=== PATIENT | female | born 1980 | race Two or more races ===

== ENCOUNTER 2024-09-30 19:37 | Emergency (ER) | payer MEDICAID, SELFPAY ==
[2024-09-30 19:39] VITALS: BMI 37.2
[2024-09-30 20:04] VITALS: BP 130/89; PULSE 91; RESP 16; TEMP 37.2; O2SAT 100
--- NOTE | 2024-09-30 20:20 | XR_ITS ---
Examination: CT brain head without contrast. 2-D sagittal coronal reconstructions Date and time of exam:September 30, 20232025 hrs. Indications: Severe headaches with nausea vomiting beginning 4 months ago CTDI: vol (mGy):49.9 DLP: (mGycm):989 Technique: Multiple CT axial sections of the brain have been obtained, 5 mm slice thickness. Contrast has not been administered. 2-D sagittal, coronal reconstructions have been obtained Low dose protocols were performed. One or more of the following dose reduction techniques were used; automated exposure control, adjustment of the mA and/or KV according to patient size, use of iterative reconstruction technique. Findings: No significant ventricular enlargement. Intra-axial or extra-axial hemorrhage density is not seen. No mass effect or midline shift Basal cisterns are not remarkable. Fourth ventricle is midline. Cranial vault intact. Impression: Negative for acute hemorrhage, mass effect or midline shift If new onset headaches persist, consider brain MRI follow-up
--- NOTE | 2024-09-30 20:21 | EDRME_ITS ---
Rapid Medical Screening Exam [facility] Arrival date/time: 09/30/24 19:37 44F with history of gastric bypass surgery presents to ED with several months of persistent FAN everyday, as well as ab pain and N/V. PCP has done blood work, but no imaging studies. Chief Complaint: Headache Vital signs: Vital Signs Temperature 98.9 F 09/30/24 20:04 Pulse Rate 91 09/30/24 20:04 Respiratory Rate 16 09/30/24 20:04 Blood Pressure 130/89 H 09/30/24 20:04 Pulse Oximetry (%) 100 09/30/24 20:04 Oxygen Delivery Method Room Air 09/30/24 20:04
[2024-09-30 20:58] LABS: Basophils # (Auto) 0.1 Thou/mm3 (0.0-0.2); Basophils % (Auto) 1 % (0-2.5); Eosinophils # (Auto) 0.9 Thou/mm3 (0.0-0.5); Eosinophils % (Auto) 8 % (0-10); Hematocrit 37.8 % (36.0-46.0); Immature Granulocytes % (Auto) 0 % (0-0); Immature Granulocytes Auto 0.05 Thou/mm3 (0.00-0.00); Lymphocytes # (Auto) 2.8 Thou/mm3 (1.0-4.8); Lymphocytes % (Auto) 24 % (10-50); Mean Corpuscular HGB Conc 31.7 g/dl (31.0-37.0); Mean Corpuscular Hemoglobin 24.3 pg (25.0-35.0); Mean Corpuscular Volume 77 fL (80-100); Monocytes # (Auto) 0.9 Thou/mm3 (0.0-0.8); Monocytes % (Auto) 8 % (0-12); Neutrophils % (Auto) 59 % (37-80); Nucleated Red Blood Cell % 0 /100 WBC (0); Platelet Count 444 Thou/mm3 (140-440); RDW Standard Deviation 41.1 fL (36.4-46.3); Red Blood Count 4.94 Miln/mm3 (4.00-5.20); White Blood Count 11.8 Thou/mm3 (3.6-11.0)
[2024-09-30 21:33] LABS: Collection Type, Urine Clean Catch
[2024-09-30 22:03] LABS: HCG Qualitative,Urine Negative
[2024-09-30 22:10] LABS: Bacteria,Urine 4+; Bilirubin,Urine Negative (Negative); Blood,Urine 1+ (Negative); Color,Urine Yellow (Lt Yel-Yel); Glucose, Urine 2+ (Negative); Ketones,Urine Negative (Negative); Leukocyte Esterase,Urine Positive (Negative); Nitrite,Urine Positive (Negative); Protein,Urine Trace (Neg - Trace); RBC,Urine 6 /hpf (0-3); Specific Gravity,Urine 1.024 (1.001-1.035); Squamous Epithelial Cell,Urine 2 /hpf (0-5); Urobilinogen,Urine Negative mg/dL (0.0-1.0); WBC,Urine 3 /hpf (0-5)
[2024-09-30 22:12] LABS: Clarity,Urine Hazy (Clear/Hazy)
[2024-09-30 23:03] LABS: Amphetamine/Methamp Scrn,U Negative (Negative); Barbiturate Screen,Urine Negative (Negative); Benzodiazepines Screen,Urine Negative (Negative); Benzoylecgonine Screen, Ur Negative (Negative); Fentanyl Screen,Urine Negative (Negative); Opiate Screen,Urine Negative (Negative); THC Screen,Urine Negative (Negative)
[2024-09-30 23:24] LABS: Strep A Rapid Negative (Negative)
[2024-09-30 23:31] LABS: Alanine Aminotransferase 68 U/L (10-49); Albumin, Serum 4.7 gm/dL (3.5-5.0); Albumin/Globulin Ratio 1.7 (1.2-2.2); Alkaline Phosphatase 179 U/L (46-116); Anion Gap 9 (7-16); Aspartate Amino Transferase 50 U/L (0-34); BUN/Creatinine Ratio 9 Ratio (12-20); Bilirubin,Total 0.7 mg/dL (0.3-1.2); Blood Urea Nitrogen 7 mg/dL (9-23); Calcium 9.4 mg/dL (8.3-10.6); Calcium (Corrected) 9.4 mg/dL (8.5-10.1); Carbon Dioxide 24.5 mMol/L (20.0-31.0); Chloride 106 mMol/L (98-107); Creatinine (Component) 0.8 mg/dL (0.6-1.3); Estimated Creatinine Clearance 93.2 mL/min (>60); Globulin 2.8 gm/dL (2.3-3.5); Glucose 100 mg/dL (74-106); Lipase 45 U/L (12-53); Osmolality,Calculated 275 (275-295); Potassium 4.1 mMol/L (3.4-5.1); Sodium 139 mMol/L (136-145); Total Protein 7.5 gm/dL (5.7-8.2); eGFR > 60 See Note
[2024-10-01] VITALS (7 sets, daily range): BP systolic 90–128; BP diastolic 55–86; PULSE 68–91; RESP 16–18; TEMP 36.8–37.2; O2SAT 99–100
--- NOTE | 2024-10-01 00:10 | PC.NURSE ---
PATIENT CAME TO CONTINUOUS [employer]ER OPERATOR TO ASK HOW MUCH LONG FOR RESULTS. I APOLOGIZED TO PATIENT AND NOTIFIED PROVIDER AND CHARGE NURSE.
--- NOTE | 2024-10-01 07:12 | PC.NURSE ---
Patient lying in gurney quietly, patient chart up for review. patient to er with c/o generlized head pain states pain has decreased to 4/10 at this time, call light within reach.
--- NOTE | 2024-10-01 07:28 | PD.EDHA ---
ED Headache RME/HPI General Chief Complaint: Headache Stated Complaint: HEADACHE, VOMITING, ABD/BACK PAIN [id number] Time Seen by Provider: 10/01/24 08:39 Arrival date/time: 09/30/24 19:37 RME / HPI RME / HPI Narrative: 09/30/24 19:37 44F with history of gastric bypass surgery presents to ED with several months of persistent FAN everyday, as well as ab pain and N/V. PCP has done blood work, but no imaging studies. DR. ELDER MAIN ED EVALUATION 44 year old female with history of gastric sleeve surgery and previous pregnancies presents to the ED for complaint of headache, back pain, nausea, vomiting, and diarrhea today. Patient reports intermittent headaches over the course of 5 months. However, noticed intensity of headache worsened 2 days ago after developing back pain, nausea vomiting, and diarrhea. Denies any vision changes or loss of function/strength. Denies fever, chills, sweating. Denies chest pain, cough, shortness of breath. Denies dysuria, urinary frequency and urgency. Related Data Home Medications ?Medication ?Instructions ?Recorded ?Confirmed vit no.95-ferrous 11/11/19 fumarate 28 mg-folic acid 800 mcg tablet () Previous Rx's ?Medication ?Instructions ?Recorded diphenhydramine HCl 50 mg capsule 50 mg PO QID PRN allergic reaction 11/11/19 #20 caps cyclobenzaprine 5 mg tablet 5 mg PO TID PRN muscle spasm #20 04/16/21 tabs naproxen 500 mg tablet 500 mg PO BID PRN pain #30 tabs 04/16/21 hydrocodone 5 mg-acetaminophen 325 1 tab PO TID #20 tabs 01/18/23 mg tablet cephalexin 500 mg capsule 500 mg PO TID #15 caps 10/01/24 Allergies Allergy/AdvReac Type Severity Reaction Status Date / Time tramadol Allergy Unknown HIVES, Verified 01/17/23 22:27 NAUSEA Review of Systems Review of Systems Narrative Review of Systems: GEN: No fever, no chills, no weight loss EYES: No discharge, no visual changes, no pain HEENT: No ear pain, no congestion, no sore throat PULM: No shortness of breath, no cough, no congestion CV: No chest pain, no dyspnea on exertion, no palpitations GI: +nausea, + vomiting, + diarrhea, no pain, no constipation : No frequency, no urgency, no dysuria MUSC/SKEL: No joint pain, +back pain SKIN: No rash PSYCH: No hallucinations, no depression HEME/LYMPH: No easy bleeding or bruising tendencies NEURO: No weakness, +headache Past Medical History Past Medical History RESPIRATORY: Positive Asthma and Bronchitis Surgical History SURGICAL: Positive Gastric Bypass Surgery Social History SMOKING STATUS: Current some day smoker ED Exam Narrative Physical exam: GENERAL APPEARANCE: alert and oriented x 4, well-developed, well-nourished, no acute distress HEENT: Normocephalic, atraumatic; pupils equal, round, reactive to light; EOMI; mucous membranes pink, moist; tonsils are enlarged and red NECK: Supple LUNGS: CTABL; no wheezes, no rales, no rhonchi HEART: Regular rate, regular rhythm; normal S1, S2; no murmurs ABDOMEN: non distended; normal BS; soft, no tenderness, no guarding, no rebound; no masses, no organomegaly, no hernia BACK: no CVA tenderness EXTREMITIES: atraumatic; no edema NEUROLOGIC: awake; alert and oriented x4; cranial nerves II-XII grossly intact; no focal sensory or motor deficits PSYCHIATRIC: appropriate mood and affect SKIN: warm, dry, normal color; no rashes Course Quality Measures none Orders Category Date Time Status CT Screening NOW Care 10/01/24 07:[address] abdomen pelvis w con Stat Exams 10/01/24 07:[address] head/brain wo con Stat Exams 09/30/24 20:[address] soft tissue neck w con Stat Exams 10/01/24 07:38 Completed CBC Stat Lab 09/30/24 20:34 Completed CMP [Comprehensive Metabolic Panel] Stat Lab 09/30/24 20:34 Completed Drug Screen,Urine Stat Lab 09/30/24 21:00 Completed HCG Qualitative,Urine Stat Lab 09/30/24 21:00 Completed Lipase Stat Lab 09/30/24 20:34 Completed Strep A Rapid Stat Lab 09/30/24 20:37 Completed Urinalysis Stat Lab 09/30/24 21:00 Completed Ketorolac Inj [Toradol Inj] Med 10/01/24 07:40 Discontinued 15 mg IVP X1 ONE Sodium Chloride 0.9% 1000 ml [Ns] 1,000 ml Med 10/01/24 07:38 Discontinued IV 999 mls/hr cefTRIAXone/D5w 1gm IV premix [Rocephin/D5w 1gm IV Med 10/01/24 08:45 Discontinued premix] 50 ml IV X1 Reevaluation(s) Reevaluation #1: Patient remains clinically stable throughout the emergency department visit. We reviewed all the results, analysis, and treatment plans. Patient is amenable to discharge. Strict return precautions were outlined. Patient was discharged in stable condition. Time: 12:00 Vital Signs Vital signs: Vital Signs Temperature 98.9 F 09/30/24 20:04 Pulse Rate 91 09/30/24 20:04 Respiratory Rate 16 09/30/24 20:04 Blood Pressure 130/89 H 09/30/24 20:04 Pulse Oximetry (%) 100 09/30/24 20:04 Oxygen Delivery Method Room Air 09/30/24 20: Pulse ox is 100% on room air which is adequate. Headache Patient data External records reviewed:: [facility] previous records (I reviewed ED visit on 01/18/2023) Clinical information provided by:: patient Social determinants that could affect healthcare access:: none Patient has the following chronic illnesses:: gastric sleeve surgery How is presenting disease/condition affected by chronic disease/condition?: exacerbated by Evaluation data The following diagnostics were reviewed and interpreted by me:: lab results and radiology exam(s) Lab and/or radiology exams considered but not ordered:: None Interpretation Summary: Head CT: No acute findings Soft tissue neck CT: bilateral soft tissue tonsillar hypertrophy Ab/pelvis CT: Hepatomegaly, no kidney stones, normal appendix, no bowel obstruction, mild cystitis pattern Medications / Prescriptions Medications or Prescriptions considered but not ordered:: none Medication administrations:: Medication Administration History Discontinued Medications Sodium Chloride (Ns) 1,000 mls @ 999 mls/hr IV .Q1H1M ONE Stop: 10/01/24 08:38 Last Infusion: 10/01/24 09:20 Dose: Infused Documented By: Admin: 10/01/24 08:18 Dose: 999 mls/hr Documented By: ELVIA Ceftriaxone Sodium/Dextrose (Rocephin/D5w 1gm Iv Premix) 50 mls @ 100 mls/hr IV X1 ONE Stop: 10/01/24 09:14 Last Infusion: 10/01/24 09:20 Dose: Infused Documented By: Admin: 10/01/24 08:48 Dose: 100 mls/hr Documented By: ELVIA Ketorolac Tromethamine (Ketorolac Inj 30 Mg/Ml Vial) 15 mg IVP X1 ONE Stop: 10/01/24 07:41 Last Admin: 10/01/24 08:18 Dose: 15 mg Documented By: ELVIA See above Consultations Consultation(s) initiated? (list below): No Diagnosis Differential diagnosis headache: migraine, tension headache, headache, sinusitis and other (dehydration, UTI) Most likely diagnosis given after review of the tests above:: UTI Enlarged tonsils Admission Indicated Admission indicated?: not indicated Admission Request Was there a request for admission?: No Disposition Plan Disposition Plan: Discharge Discharge Attestation Discharge Attestation: The patient and all family members were given an opportunity to ask questions and understood the discharge instructions. Discharge instructions specifically effects, indications for sooner follow up or return to the emergency department, and the expected course of current diagnosis. Patient condition: Stable Discharge Plan Plan Patient Disposition: HOME (Self Care) Prescriptions/Referrals Prescriptions/Med Rec: New cephalexin 500 mg capsule 500 mg PO TID Qty: 15 0RF No Action cyclobenzaprine 5 mg tablet 5 mg PO TID PRN (Reason: muscle spasm) Qty: 20 0RF naproxen 500 mg tablet 500 mg PO BID PRN (Reason: pain) Qty: 30 0RF PNV cmb#95-ferrous fumarate-FA [] 28 mg iron- 800 mcg Tablet diphenhydramine HCl 50 mg capsule 50 mg PO QID PRN (Reason: allergic reaction) Qty: 20 0RF Rx Instructions: Take 1 tablet 4 times a day on the first day, and then 1 tablet 4 times a day if necessary for itching or allergic reaction hydrocodone-acetaminophen 5-325 mg tablet 1 tab PO TID MDD 3 Qty: 20 0RF Referrals: Bony Tavarez MD [Primary Care Provider] - In 1 week Problem List Clinical Impression: UTI (urinary tract infection), Enlarged tonsils Patient/Caregiver Discharge Instructions Education Materials: ED CYSTITIS Female Adult Print Language: Djiboutian Stand Alone Forms: Danna Award Info., Patient Portal Info Letter
--- NOTE | 2024-10-01 07:38 | XR_ITS ---
Examination: CT soft tissue neck, with intravenous contrast. 2-D coronal reconstructions. 2-D sagittal reconstructions. Date and time of exam :October 01, 2024 0920 hours INDICATIONS: Onset sore throat today. CTDI: vol (mGy):11.7 DLP: (mGycm):295 Technique: 1.25 mm axial sections of the neck of the obtained. Coronal and sagittal reconstructions have been obtained. Intravenous contrast administered 60 cc Isovue-370. Low dose protocols were performed. One or more of the following dose reduction techniques were used; automated exposure control, adjustment of the mA and/or KV according to patient size, use of iterative reconstruction technique. Findings: Moderate bilateral soft tissue tonsillar hypertrophy No tonsillar abscess Symmetrical submandibular glands No pathologic cervical lymphadenopathy The larynx appears normal Symmetrical thyroid lobes The epiglottis is not thickened No prevertebral soft tissue prominence Satisfactory alignment cervical vertebral bodies on the lateral view IMPRESSION: Moderate bilateral soft tissue tonsillar hypertrophy No tonsillar abscess depicted
--- NOTE | 2024-10-01 07:39 | XR_ITS ---
Examination: CT abdomen with intravenous contrast CT pelvis with intravenous contrast 2-D coronal reconstructions 2-D sagittal reconstructions Date and time of exam:October 01, 2024 0920 hours INDICATIONS: Abdominal pain nausea vomiting beginning 4 months ago. CTDI: vol (mGy) 26.5 DLP: (mGycm) 1647 Technique: Multiple axial sections of the abdomen and pelvis have been obtained. 64 slice high-resolution scanner used. 3 mm axial sections have been obtained, post intravenous injection 60 cc Isovue-370 2-D sagittal, coronal reconstructions obtained. Low dose protocols were performed. One or more of the following dose reduction techniques were used; automated exposure control, adjustment of the mA and/or KV according to patient size, use of iterative reconstruction technique. Findings: Fatty infiltration throughout the liver Absent gallbladder Small splenic liver cysts No pancreatic mass Normal adrenal glands No renal or ureteral calculi, no hydronephrosis Aorta normal size 20 mm fat-containing umbilical hernia Normal appendix No bowel obstruction No diverticulitis Anteverted uterus, no adnexal mass Minimal wall thickening urinary bladder Osseous structures intact IMPRESSION: Hepatomegaly 18 cm fatty liver No renal or ureteral calculi, no hydronephrosis 20 mm fat-containing umbilical hernia Normal appendix No bowel obstruction diverticulitis or free air Mild cystitis pattern
[2024-10-01] MEDS: KETOROLAC INJ 30 MG/ML VIAL 15 MG IVP (08:18)
[2024-10-01] MEDS: SODIUM CHLORIDE 0.9% 1000 ML 1,000 ML 999 ML IV (08:18)
--- NOTE | 2024-10-01 08:27 | PC.NURSE ---
Called pharmacy for rocephin, not in our pyxis
[2024-10-01] MEDS: cefTRIAXone/D5w 1gm IV premix 50 ML IV (08:48)
--- NOTE | 2024-10-01 11:07 | PC.NURSE ---
Patient lying in gurney quietly on her right side, patient states her head pain is 4/10 and is tolerable at this time, all results up for review, call light within reach.
== END 2024-10-01 12:56 | disposition home or self-care (01) ==
PROVIDERS: Physician Assistant; Emergency Provider Emergency Medicine; PCP Family Medicine
DX: N39.0 Urinary tract infection, site not specified (principal); J35.1 Hypertrophy of tonsils; R51.9 Headache, unspecified; R11.2 Nausea with vomiting, unspecified; R10.9 Unspecified abdominal pain; F17.210 Nicotine dependence, cigarettes, uncomplicated
CPT/HCPCS: 36415; 70450; 70491; 74177; 80053; 80307; 81001; 81025; 83690; 85025; 87651; 96365; 99285; A4649; J0696; J1885; J7030; Q9967

== ENCOUNTER 2025-06-22 12:15 | Emergency (ER) | payer MEDICAID, SELFPAY ==
[2025-06-22 12:25] VITALS: BP 133/77; PULSE 85; RESP 18; TEMP 36.9; O2SAT 98
--- NOTE | 2025-06-22 12:32 | XR_ITS ---
Examination: Left elbow 3 views Technique: Elbow AP, oblique, lateral 3 views Exam date and time: June 22, 2025 1259 hours INDICATIONS: Injury to the elbow today, elbow pain. FINDINGS: No fracture or dislocation. No foreign body IMPRESSION: No fracture or dislocation.
--- NOTE | 2025-06-22 14:12 | PD.EDUPEX ---
Upper Extremity Injury RME/HPI General Chief Complaint: Extremity Injury, Upper Stated Complaint: HIT L) ELBOW REALLY HARD ON DRESSER Time Seen by Provider: 06/22/25 12:24 Source: patient Arrival date/time: 06/22/25 12:15 45-year-old female with no known medical history presents to the emergency room with a chief complaint of tenderness and pain to her left elbow after hitting her hand hard on a dresser yesterday afternoon Mode of arrival: ambulatory Limitations: no limitations Related Data Home Medications ?Medication ?Instructions ?Recorded ?Confirmed vit no.95-ferrous 11/11/19 fumarate 28 mg-folic acid 800 mcg tablet () Previous Rx's ?Medication ?Instructions ?Recorded diphenhydramine HCl 50 mg capsule 50 mg PO QID PRN allergic reaction 11/11/19 #20 caps cyclobenzaprine 5 mg tablet 5 mg PO TID PRN muscle spasm #20 04/16/21 tabs naproxen 500 mg tablet 500 mg PO BID PRN pain #30 tabs 04/16/21 hydrocodone 5 mg-acetaminophen 325 1 tab PO TID #20 tabs 01/18/23 mg tablet cephalexin 500 mg capsule 500 mg PO TID #15 caps 10/01/24 Allergies Allergy/AdvReac Type Severity Reaction Status Date / Time tramadol Allergy Unknown HIVES, Verified 06/22/25 12:18 NAUSEA Review of Systems Review of Systems Systems Reviewed: All systems reviewed, normal except as documented Constitutional Constitutional: Reports system reviewed and no additional complaints, except as documented, Denies fatigue, Denies fever(s), Denies headache(s) and Denies weakness Eyes Eyes: Reports system reviewed and no additional complaints, except as documented, Denies blurry vision and Denies change in vision ENT Ears, Nose, Mouth, and Throat: Reports system reviewed and no additional complaints, except as documented, Denies otalgia, Denies headache(s), Denies nasal congestion, Denies throat swelling and Denies vertigo Cardiovascular Cardiovascular: Reports system reviewed and no additional complaints, except as documented, Denies chest pain, Denies dyspnea and Denies dyspnea on exertion Respiratory Respiratory: Reports system reviewed and no additional complaints, except as documented, Denies chest congestion, Denies cough, Denies dyspnea, Denies dyspnea on exertion and Denies wheezing Gastrointestinal Gastrointestinal: Reports system reviewed and no additional complaints, except as documented, Denies abdominal pain, Denies cramping, Denies nausea and Denies vomiting Genitourinary Genitourinary: Reports system reviewed and no additional complaints, except as documented Musculoskeletal Musculoskeletal: Reports system reviewed and no additional complaints, except as documented, Reports arthralgias, Denies back pain, Reports joint swelling and Denies limited range of motion Integumentary/Breasts Skin/Breast: Reports system reviewed and no additional complaints, except as documented and Denies wounds Neurologic Neurologic: Reports system reviewed and no additional complaints, except as documented, Denies confusion, Denies headache(s), Denies lack of coordination, Denies vertigo and Denies weakness Psychiatric Psychiatric: Reports system reviewed and no additional complaints, except as documented, Denies anxiety, Denies confusion, Denies depression, Denies paranoia, Denies suicidal ideation and Denies tactile hallucinations Endocrine Endocrine: Reports system reviewed and no additional complaints, except as documented and Denies fatigue Hematologic/Lymphatic Hematologic/Lymphatic: Reports system reviewed and no additional complaints, except as documented and Denies lymphadenopathy Allergic/Immunologic Allergic/Immunologic: Reports system reviewed and no additional complaints, except as documented, Denies throat swelling, Denies urticaria and Denies wheezing Past Medical History Past Medical History CARDIAC: Negative Cardiac Disorders or Congestive Heart Failure RESPIRATORY: Positive Asthma and Bronchitis; Negative Chronic Obstructive Pulmonary Disease (COPD) GENITOURINARY: Negative Renal Disease ENDOCRINE: Negative Diabetes Mellitus Type 1 or Diabetes Mellitus Type 2 HEMATOLOGIC: Negative Sickle Cell Disease Surgical History SURGICAL: Positive Gastric Bypass Surgery Social History SMOKING STATUS: Former smoker ED Exam General Limitations: Present no limitations General appearance: Present alert and in no apparent distress Head Head exam: Present atraumatic Eye Eye exam: Present normal appearance, PERRL and EOMI ENT ENT exam: Present normal exam, normal oropharynx and mucous membranes moist Neck Neck exam: Present normal inspection, full ROM and trachea midline Chest Chest inspection: Present normal inspection and symmetric chest wall rise Respiratory Respiratory exam: Present normal lung sounds bilaterally Cardiovascular Cardiovascular exam: Present regular rate, normal rhythm and normal heart sounds Abdominal Exam Abdominal exam: Present soft and normal bowel sounds Extremities Exam Extremities exam: Present normal inspection and full ROM Expanded Upper Extremity Exam Shoulder exam: Present normal inspection Arm exam: Present normal inspection Elbow exam: Present full ROM, tenderness and swelling Back Exam Back exam: Present normal inspection and full ROM Neurological Exam Neurological exam: Present alert, oriented X3 and CN II-XII intact Psychiatric Psychiatric exam: Present normal affect and normal mood Skin Skin exam: Present warm, dry, intact and normal color Course Quality Measures none Orders Category Date Time Status XR elbow comp LT min 3V Stat Exams 06/22/25 12:32 Completed Vital Signs Vital signs: Vital Signs Temperature 98.5 F 06/22/25 12:25 Pulse Rate 85 06/22/25 12:25 Respiratory Rate 18 06/22/25 12:25 Blood Pressure 133/77 H 06/22/25 12:25 Pulse Oximetry (%) 98 06/22/25 12:25 Oxygen Delivery Method Room Air 06/22/25 12:25 Extremity Injury MDM Narrative MDM Narrative:: 45-year-old female with no known medical history presents to the emergency room with a chief complaint of tenderness and pain to her left elbow after hitting her hand hard on a dresser yesterday afternoon Patient is hemodynamically stable and in no apparent distress Physical examination shows tenderness pain to her left elbow. The patient has a mild effusion. The patient has full range of motion and sensation and patient states the pain radiates down into her left hand. An x-ray of the left elbow was completed and was negative for any acute fracture or dislocation Patient was discharged and educated to follow-up with primary care provider in the next 24 to 48 hours and return to the emergency room for any evidence of worsening signs or symptoms Patient data External records reviewed:: [facility] previous records Clinical information provided by:: patient Social determinants that could affect healthcare access:: none Patient has the following chronic illnesses:: No chronic illness How is presenting disease/condition affected by chronic disease/condition?: no chronic disease Evaluation data The following diagnostics were reviewed and interpreted by me:: lab results and radiology exam(s) Lab and/or radiology exams considered but not ordered:: Labs and radiology exams considered and ordered Interpretation Summary: X-ray left elbowFINDINGS: No fracture or dislocation. No foreign body IMPRESSION: No fracture or dislocation. Medications / Prescriptions Medications or Prescriptions considered but not ordered:: No medication given Medication administrations:: No medication given Consultations Consultation(s) initiated? (list below): No Diagnosis Upper Extremity Injury Differential Diagnosis: other (Left elbow sprain/left elbow fracture) Most likely diagnosis given after review of the tests above:: Left elbow sprain Admission Indicated Admission indicated?: not indicated Admission Request Was there a request for admission?: No Disposition Plan Disposition Plan: Discharge Discharge Attestation Discharge Attestation: The patient and all family members were given an opportunity to ask questions and understood the discharge instructions. Discharge instructions specifically effects, indications for sooner follow up or return to the emergency department, and the expected course of current diagnosis. Patient condition: Stable Discharge Plan Plan Patient Disposition: HOME (Self Care) Discharge Disposition comment: Stable Prescriptions/Referrals Prescriptions/Med Rec: No Action cyclobenzaprine 5 mg tablet 5 mg PO TID PRN (Reason: muscle spasm) Qty: 20 0RF naproxen 500 mg tablet 500 mg PO BID PRN (Reason: pain) Qty: 30 0RF PNV no.95-ferrous fumarate-FA [] 28 mg iron- 800 mcg Tablet diphenhydramine HCl 50 mg capsule 50 mg PO QID PRN (Reason: allergic reaction) Qty: 20 0RF Rx Instructions: Take 1 tablet 4 times a day on the first day, and then 1 tablet 4 times a day if necessary for itching or allergic reaction hydrocodone-acetaminophen 5-325 mg tablet 1 tab PO TID MDD 3 Qty: 20 0RF cephalexin 500 mg capsule 500 mg PO TID Qty: 15 0RF Problem List Clinical Impression: Contusion of elbow Patient/Caregiver Discharge Instructions Education Materials: ED Contusion, Elbow Additional Instructions: Please follow-up with your primary care provider in the next 24 to 48 hours X-ray of your elbow was negative for any acute fractures or dislocation For any evidence of worsening signs or symptoms return to the emergency room immediately Print Language: Afghan Stand Alone Forms: Danna Award Info., Work/School Release, Patient Portal Info Letter XENA/LUIS A Supervising Physician XENA/LUIS A Supervising Physician: Dr. Schultz
== END 2025-06-22 14:38 | disposition home or self-care (01) ==
LOC: SERX 14:45
PROVIDERS: Emergency Provider Nurse Practitioner Family
DX: S50.02XA Contusion of left elbow, initial encounter (principal); W22.03XA Walked into furniture, initial encounter
CPT/HCPCS: 73080; 99283